=== PATIENT | female | born 1965 | race Caucasian/White ===

== ENCOUNTER 2019-12-16 04:34 | Inpatient (IN) | payer MEDICAID ==
[~2019-12-16] VITALS: Ht 165.1 cm; Wt 66.8 kg
[2019-12-16] MEDS ORDERED: IPRATROPIUM BROMIDE (0.02%) 0.5MG/2.5ML NEB HHN STA (04:48)
[2019-12-16] MEDS ORDERED: METHYLPREDNISOLONE SOD SUCC 125 MG/2 ML VIAL IV STA (04:48)
[2019-12-16] MEDS ORDERED: ALBUTEROL (0.083%) 2.5MG/3ML NEB HHN STA (04:48)
[2019-12-16] MEDS ORDERED: ONDANSETRON HCL 4MG/2ML INJ IV ONE (05:00)
[2019-12-16 05:25] LABS: BASOPHILS % 0.3 % (0.0-2.0); EOSINOPHILS % 1.8 % (0.0-5.0); HEMATOCRIT. 41.1 % (36.0-48.0); HEMOGLOBIN. 13.9 g/dL (12.0-16.0); LYMPHOCYTES % 41.9 % (20.0-50.0); MEAN CORPUSCULAR VOLUME 85.8 fL (81.0-99.0); MEAN PLATELET VOLUME 9.5 fl (7.4-10.4); MONOCYTES % 2.4 % (2.0-8.0); NEUTROPHILS % 53.6 % (40.0-76.0); PLATELET 373 x1000/uL (130-400); RED BLOOD CELL COUNT 4.79 mill/uL (4.2-5.4); RED CELL DISTRIBUTION WIDTH 12.6 % (11.6-14.6)
[2019-12-16 05:33] LABS: CHLORIDE 107 mEq/L (98-107)
[2019-12-16] MEDS ORDERED: ASPIRIN 81MG TABLET PO ONE ×2 (07:15→10:00)
[2019-12-16] MEDS ORDERED: SODIUM CHLORIDE 0.9% 1,000 ML IV ONE (07:16)
[2019-12-16] MEDS ORDERED: MAGNESIUM 2 G PREMIX 50 ML IV ONE (07:30)
[2019-12-16] MEDS ORDERED: NITROGLYCERIN OINT 1GM/INCH UDPKT TD ONE (10:00)
[2019-12-16] MEDS ORDERED: ENOXAPARIN 80MG/0.8ML SYR SUBCUT ONE (10:00)
[2019-12-16 10:02] LABS: INR 0.9; PARTIAL THROMBOPLASTIN TIME 23.6 sec (23.4-31.0); PROTHROMBIN TIME 9.8 sec (9.6-11.0)
[2019-12-16 11:49] LABS: CREATINE KINASE MB FRACTION 8.8 ng/mL (0.5-3.6)
[2019-12-16 11:50] LABS: *AMPHETAMINES SCREEN URINE NEGATIVE (NEGATIVE); *BARBITURATES SCREEN URINE NEGATIVE (NEGATIVE); *BENZODIAZEPINES SCREEN URINE NEGATIVE (NEGATIVE); *COCAINE SCREEN URINE NEGATIVE (NEGATIVE); METHADONE URINE SCREEN NEGATIVE (NEGATIVE)
[2019-12-16 11:51] LABS: CANNABINOID URINE SCREEN NEGATIVE (NEGATIVE); OPIATES URINE SCREEN NEGATIVE (NEGATIVE); PHENCYCLIDINE URINE SCREEN NEGATIVE (NEGATIVE)
[2019-12-16] MEDS ORDERED: MAGNESIUM/ALUMINUM HYDROXIDE/SIMETHICONE 30ML UDC PO PRN (15:00)
[2019-12-16] MEDS ORDERED: GUAIFENESIN 200MG/10ML SUGAR FREE UDC PO PRN (15:00)
[2019-12-16] MEDS ORDERED: DIPHENHYDRAMINE 50MG/ML VIAL IV PRN (15:00)
[2019-12-16] MEDS ORDERED: ACETAMINOPHEN 325MG TABLET PO PRN (15:00)
[2019-12-16] MEDS ORDERED: CLONIDINE 0.1MG TABLET PO PRN (15:00)
[2019-12-16] MEDS ORDERED: ONDANSETRON HCL 4MG/2ML INJ IV PRN (15:00)
[2019-12-16] MEDS ORDERED: ENOXAPARIN 40MG/0.4ML SYR SUBCUT SCH (15:00)
[2019-12-16 22:00] VITALS: BP 105/48
[2019-12-16 22:30] VITALS: BP 105/48
[2019-12-16] MEDS: SODIUM CHLORIDE 0.9% INJ 3ML FLUSH IVF SCH (23:20)
[2019-12-17] VITALS (12 sets, daily range): BP systolic 90–117; BP diastolic 44–77
[2019-12-17] MEDS: SODIUM CHLORIDE 0.9% INJ 3ML FLUSH IVF SCH ×3 (05:58→21:43)
[2019-12-17] MEDS ORDERED: ENOXAPARIN 40MG/0.4ML SYR SUBCUT SCH (10:00)
[2019-12-18] VITALS (10 sets, daily range): BP systolic 98–145; BP diastolic 56–80
[2019-12-18] MEDS: SODIUM CHLORIDE 0.9% INJ 3ML FLUSH IVF SCH ×2 (06:00→14:05)
[2019-12-18 07:27] LABS: BASOPHILS % 0.5 % (0.0-2.0); EOSINOPHILS % 1.1 % (0.0-5.0); HEMATOCRIT. 37.6 % (36.0-48.0); HEMOGLOBIN. 12.6 g/dL (12.0-16.0); LYMPHOCYTES % 32.2 % (20.0-50.0); MEAN CORPUSCULAR HEMOGLOBIN 28.4 pg (28.0-32.0); MEAN CORPUSCULAR VOLUME 84.8 fL (81.0-99.0); MEAN PLATELET VOLUME 9.7 fl (7.4-10.4); MONOCYTES % 8.3 % (2.0-8.0); NEUTROPHILS % 57.9 % (40.0-76.0); PLATELET 285 x1000/uL (130-400); RED BLOOD CELL COUNT 4.44 mill/uL (4.2-5.4); RED CELL DISTRIBUTION WIDTH 12.9 % (11.6-14.6)
[2019-12-18 07:55] LABS: CHLORIDE 108 mEq/L (98-107)
[2019-12-18] MEDS ORDERED: SODIUM CHLORIDE 0.45% 1,000 ML IV SCH (10:00)
[2019-12-18] MEDS ORDERED: ASPIRIN 81MG EC TABLET PO SCH (10:30)
[2019-12-18] MEDS ORDERED: NICARDIPINE 100MCG/ML 10ML VIAL (CATH LAB) IV ONE (11:56)
[2019-12-18] MEDS ORDERED: HEPARIN SODIUM 1,000 UNIT/1ML VIAL IV ONE (11:56)
[2019-12-18] MEDS ORDERED: NITROGLYCERIN 50MCG/ML 10ML VIAL (CATH LAB) IV ONE (11:56)
[2019-12-18] MEDS ORDERED: LIDOCAINE HCL 1% 20ML VIAL (Pyxis) INJ ONE (12:52)
[2019-12-18] MEDS ORDERED: IODIXANOL 320MG/ML 100 ML BOTTLE IV ONE (12:52)
[2019-12-18] MEDS ORDERED: MIDAZOLAM HCL 2 MG/2 ML VIAL ONE (13:02)
[2019-12-18] MEDS ORDERED: FENTANYL CITRATE/PF 50MCG/ML 2ML VIAL ONE (13:02)
[2019-12-18] MEDS ORDERED: ACETAMINOPHEN 325MG TABLET PO PRN (13:45)
[2019-12-18] MEDS ORDERED: ONDANSETRON HCL 4MG/2ML INJ IV PRN (13:45)
[2019-12-18] MEDS ORDERED: ATROPINE SULFATE 1MG/10ML SYR IV PRN (13:45)
[2019-12-18] MEDS ORDERED: ASPI-1158 MT (14:43)
[2019-12-18] MEDS ORDERED: ATOR20TA MT (14:43)
== END 2019-12-18 17:57 | disposition home or self-care (01) | DRG 190 ==
LOC: ER 04:34 → EDBEDREQSVC 09:56 → EDBEDREQ 09:56 → EDBEDREQTM 09:56 → EDBEDREQSVC 11:15 → EDBEDREQTM 11:15 → EDBEDREQSVC 15:33 → 3WST 19:52 → ENRESERV 21:42
PROVIDERS: ADMIT Internal Medicine; ATTEND Internal Medicine
PROC: 4A023N7 Measurement of Cardiac Sampling and Pressure, Left Heart, Percutaneous Approach (ICD-10-PCS; principal; 2019-12-18)
PROC: B2111ZZ Fluoroscopy of Multiple Coronary Arteries using Low Osmolar Contrast (ICD-10-PCS; 2019-12-18)
PROC: B2151ZZ Fluoroscopy of Left Heart using Low Osmolar Contrast (ICD-10-PCS; 2019-12-18)
DX: I21.4 Non-ST elevation (NSTEMI) myocardial infarction (principal); E78.00 Pure hypercholesterolemia, unspecified; J45.909 Unspecified asthma, uncomplicated; E78.5 Hyperlipidemia, unspecified; Z79.899 Other long term (current) drug therapy
CPT/HCPCS: 36415; 71045; 80048; 80053; 80061; 80305; 82550; 82553; 83036; 83880; 84484; 85025; 85379; 93005; 93306; 93458; 93970; 94002; 96365; 99291; C1769; C1893; J1644; J1650; J2250; J2405; J2930; J3010; J3475; J3490; J7030; Q9967

== ENCOUNTER → 2019-12-16 | Emergency (ER) | payer OTHER ==
[~2019-12-16] MED LIST: ALBU90AE INH; ALBUTEROL (0.5%) 2.5MG/0.5ML NEB HHN ONE; ASPI-1158 MT; ATOR20TA MT; FLUT9.9S BOTHNSTRLS; LEVO500T2 MT; LORA10CA MT
== END | disposition left against medical advice (07) ==
LOC: ER 04:32
DX: T78.40XA Allergy, unspecified, initial encounter (principal); R07.89 Other chest pain; Z53.21 Procedure and treatment not carried out due to patient leaving prior to being seen by health care provider; X58.XXXA Exposure to other specified factors, initial encounter; Y93.89 Activity, other specified; Y92.89 Other specified places as the place of occurrence of the external cause; Y99.8 Other external cause status
CPT/HCPCS: 93005; Z7610

== ENCOUNTER 2019-12-20 13:06 | Inpatient (IN) | payer MEDICAID ==
[~2019-12-20] VITALS: Ht 160 cm; Wt 70.3 kg
[~2019-12-20 13:06] MED LIST changes: -ALBU90AE INH; -ALBUTEROL (0.5%) 2.5MG/0.5ML NEB HHN ONE; -FLUT9.9S BOTHNSTRLS; -LEVO500T2 MT; -LORA10CA MT
[2019-12-20] MEDS ORDERED: ALBUTEROL (0.083%) 2.5MG/3ML NEB HHN STA (13:27)
[2019-12-20] MEDS ORDERED: METHYLPREDNISOLONE SOD SUCC 125 MG/2 ML VIAL IV STA (13:27)
[2019-12-20] MEDS ORDERED: IPRATROPIUM BROMIDE (0.02%) 0.5MG/2.5ML NEB HHN STA (13:27)
[2019-12-20] MEDS ORDERED: MAGNESIUM 2 G PREMIX 50 ML IV ONE (13:30)
[2019-12-20] MEDS ORDERED: ASPIRIN 81MG TABLET PO ONE (13:30)
[2019-12-20 14:07] LABS: BG BASE EXCESS -3.3 mmol/L (-2.0-2.0); BG CARBOXYHEMOGLOBIN 0.4 % (0.5-1.5); BG DEOXYHEMOGLOBIN 2.3 % (0.0-5.0); BG FRACTION INSPIRED OXYGEN 36; BG HCO3 ACT 20.7 mmol/L (22.0-26.0); BG METHEMOGLOBIN 0.2 % (0.0-1.5); BG OXYGEN SATURATION 97.7 % (92.0-98.5); BG OXYHEMOGLOBIN 97.1 % (94.0-97.0); BG PCO2 34.2 mmHg (35.0-45.0); BG PO2 102.3 mmHg (75.0-100.0); BG SAMPLE SITE RIGHT BRACHIAL; BG TOTAL HEMOGLOBIN 13.3 g/dL (12.0-18.0); BG VENT MODE NASAL CANNULA
[2019-12-20 14:09] LABS: BASOPHILS % 0.4 % (0.0-2.0); EOSINOPHILS % 1.1 % (0.0-5.0); HEMATOCRIT. 37.9 % (36.0-48.0); HEMOGLOBIN. 12.9 g/dL (12.0-16.0); LYMPHOCYTES % 24.2 % (20.0-50.0); MEAN CORPUSCULAR HEMOGLOBIN 28.9 pg (28.0-32.0); MEAN PLATELET VOLUME 9.6 fl (7.4-10.4); MONOCYTES % 5.8 % (2.0-8.0); NEUTROPHILS % 68.5 % (40.0-76.0); PLATELET 305 x1000/uL (130-400); RED BLOOD CELL COUNT 4.46 mill/uL (4.2-5.4)
[2019-12-20 14:14] LABS: CHLORIDE 106 mEq/L (98-107)
[2019-12-20 14:20] LABS: D-DIMER 0.56 mg/L FEU (<0.50); INR 0.9; PROTHROMBIN TIME 10.2 sec (9.6-11.0)
[2019-12-20] MEDS ORDERED: IOHEXOL-350 100 ML BOTTLE ONE (23:02)
[2019-12-21] VITALS: BP 128/73
[2019-12-21] MEDS ORDERED: ACETAMINOPHEN 325MG TABLET PO PRN (01:30)
[2019-12-21] MEDS ORDERED: IPRATROPIUM/ALBUTEROL 0.5-3(2.5)MG/3ML NEB HHN PRN (01:30)
[2019-12-21] MEDS ORDERED: PANTOPRAZOLE 40MG DR TABLET PO SCH (07:40)
[2019-12-21] MEDS: IPRATROPIUM/ALBUTEROL 0.5-3(2.5)MG/3ML NEB HHN SCH ×2 (08:23→15:19)
[2019-12-21] MEDS ORDERED: ENOXAPARIN 40MG/0.4ML SYR SUBCUT SCH (09:00)
[2019-12-21] MEDS ORDERED: LORATADINE 10MG TABLET PO SCH (15:00)
[2019-12-21] MEDS ORDERED: LORA10CA MT (15:19)
[2019-12-21] MEDS ORDERED: LEVO500T2 MT (15:19)
[2019-12-21] MEDS ORDERED: FLUT9.9S BOTHNSTRLS (15:19)
[2019-12-21] MEDS ORDERED: ALBU90AE INH (15:19)
[2019-12-21] MEDS ORDERED: DILTIAZEM HCL 30MG TABLET PO SCH (15:30)
[2019-12-21] MEDS ORDERED: LEVOFLOXACIN 500MG PREMIX 100 ML IV SCH (16:00)
[2019-12-21] MEDS ORDERED: LEVOFLOXACIN 500MG TABLET PO SCH (16:30)
[2019-12-21 17:00] VITALS: BP 115/57
[2019-12-21 18:13] LABS: HEMATOCRIT 38.8 % (36.0-48.0); HEMOGLOBIN 13.1 g/dL (12.0-16.0); MEAN CORPUSCULAR HEMOGLOBIN 28.5 pg (28.0-32.0); MEAN CORPUSCULAR VOLUME 84.6 fL (81.0-99.0); PLATELET 323 x1000/uL (130-400); RED BLOOD CELL COUNT 4.59 mill/uL (4.2-5.4); RED CELL DISTRIBUTION WIDTH 13.2 % (11.6-14.6)
[2019-12-21 18:34] LABS: CHLORIDE 106 mEq/L (98-107)
[2019-12-21] MEDS ORDERED: FLUTICASONE PROPIONATE 50MCG/SPRAY BOTTLE BOTHNSTRLS SCH (21:00)
== END 2019-12-21 17:44 | disposition home or self-care (01) | DRG 113 ==
LOC: ER 13:40 → ENRESERV 21:21 → 7WST 12-21 01:00
PROVIDERS: ADMIT Internal Medicine; ATTEND Internal Medicine
DX: J01.90 Acute sinusitis, unspecified (principal); R16.0 Hepatomegaly, not elsewhere classified; R74.0 Nonspecific elevation of levels of transaminase and lactic acid dehydrogenase [LDH]; R73.9 Hyperglycemia, unspecified; E78.5 Hyperlipidemia, unspecified; F41.9 Anxiety disorder, unspecified; Z79.82 Long term (current) use of aspirin; Z79.899 Other long term (current) drug therapy
CPT/HCPCS: 36415; 36600; 71045; 71275; 80048; 80053; 80076; 82375; 82805; 83880; 84484; 85025; 85027; 85379; 93005; 99291; J1650; J1956; J2930; J3475; Q9967